=== PATIENT | male | born 1960 | race Caucasian/White ===

== ENCOUNTER 2017-08-08 06:02 | Observation (INO) | payer OTHER ==
[~2017-08-08 06:02] MED LIST: Buffered Lidocaine 0.9% SYRIN* 5 ML/SYR SYRINGE INTRADERM ONE
[2017-08-08] MEDS ORDERED: ceFAZolin 2 GM (*##) 2 GM/100 ML BAG USE CEFA2SOL IVPB ONE (06:11)
[2017-08-08] MEDS ORDERED: Lidocaine 1% MPF wEPI 200,000* 30 ML SDV ONE (07:15)
[2017-08-08] MEDS ORDERED: Bacitracin IV* 50,000 UNITS INJ ONE (07:15)
[2017-08-08] MEDS ORDERED: Thrombin 5,000 UNITS* 1 APPLIC KIT - topical use - TOPICAL ONE (07:15)
[2017-08-08] MEDS ORDERED: Propofol* 10 MG/ML 20 ML BTL IV PUSH ONE (07:33)
[2017-08-08] MEDS ORDERED: Ondansetron INJ* 2 MG/ML VIAL ONE (07:33)
[2017-08-08] MEDS ORDERED: Atracurium* 10 MG/ML 10 ML VIAL ONE (07:33)
[2017-08-08] MEDS ORDERED: Lidocaine 2% PF * 5 ML VIAL ONE (07:33)
[2017-08-08] MEDS ORDERED: fentaNYL* 50 MCG/ML 5 ML VIAL (250 MCG VIAL) ONE (07:33)
[2017-08-08] MEDS ORDERED: Dexamethasone IV* 4 MG/ML 1 ML (4 MG) ONE (07:33)
[2017-08-08] MEDS ORDERED: EPHEDrine (Pressors)* 50 MG/ML VIAL ONE (08:17)
[2017-08-08] MEDS ORDERED: HYDROmorphone INJ* 1 MG/ML CARPUJECT SYRINGE IV PRN (08:38)
[2017-08-08] MEDS ORDERED: Naloxone* 0.4 MG/ML 1 ML VIAL IV PRN (08:38)
[2017-08-08] MEDS ORDERED: oxyCODONE TAB* 5 MG TAB PO PRN (08:38)
[2017-08-08] MEDS ORDERED: fentaNYL* 50 MCG/ML 2 ML VIAL (100 MCG VIAL) IV PRN (08:38)
[2017-08-08] MEDS ORDERED: DiMENhydriNATE IV* 50 MG/ML VIAL IV PUSH PRN (08:38)
[2017-08-08] MEDS ORDERED: Acetaminophen TAB* 325 MG PO PRN (08:57)
[2017-08-08] MEDS ORDERED: Ondansetron INJ* 2 MG/ML VIAL IV PRN (08:57)
[2017-08-08] MEDS ORDERED: Magnesium Hydroxide LIQ* 30 ML UDC PO PRN (08:57)
[2017-08-08] MEDS ORDERED: Ketorolac INJ* 30 MG/ML 1 ML VIAL ONE (09:31)
--- NOTE | 2017-08-08 11:00 | RAD ---
Indication: L2-L3 discectomy. Comparison: No relevant prior exams available on the [facility] PACS for comparison. Technique: Prone crosstable lateral lumbar sacral spine 0815 hours Report: Tissue retractor and surgical instrument at the L2-L3 level. IMPRESSION: Intraoperative control film.
[2017-08-08] MEDS: PTO:Fenofibrate(NF) 145 MG TAB PO SCH ×3 (19:33→19:51)
[2017-08-08] MEDS: HYDROcodone/ACETAMIN 5-325 MG* 1 TAB PO PRN (20:00)
[2017-08-09] MEDS: HYDROcodone/ACETAMIN 5-325 MG* 1 TAB PO PRN ×3 (00:01→09:30)
[2017-08-09] MEDS ORDERED: Levothyroxine TAB* 150 MCG TAB PO SCH (06:00)
--- NOTE | 2017-08-09 07:45 | PN ---
Progress Note - Progress Note Date of Service: 08/09/17 SOAP: Subjective: []POD # 1 C/o incisional pain Pre op severe leg pain relieved Dressing intact Objective: []Neuro intact Pre op leg pain relieved Assessment: []Satis post op course Plan: []D/C today D/C Instructions given
[2017-08-09 07:49] VITALS: BP 98/62
--- NOTE | 2017-08-10 06:50 | OP ---
DATE OF OPERATION: 08/08/17 - ROOM #[id number] DATE OF : 60 PRIMARY SURGEON: Jerel Cartagena MD. ASSEMBLY INSTRUCTIONS WRITER: LEO Conway. ANESTHESIA: General. PRE-OP DIAGNOSIS: Herniated nucleus pulposus, L2-3 on the right. POST-OP DIAGNOSIS: Herniated nucleus pulposus, L2-3 on the right. OPERATIVE PROCEDURE: Lumbar diskectomy L2-3 on the right with microdissection. DESCRIPTION OF PROCEDURE: After satisfactory general anesthesia was obtained, the patient was placed on the operating table in a prone position with the chest supported on the Daquan frame and the back slightly flexed. The lumbar region was then clipped, prepped, and draped in a sterile manner for a lumbar laminectomy and a skin incision outlined from L2 to L3. This incision was infiltrated with 1% Xylocaine with epinephrine, after which it was turned sharply to the level of the lumbar fascia. The fascia was divided along the spinous processes of L2 and L3 and the paraspinal musculature stripped away from these posterior elements using the periosteal elevator and monopolar cautery. An intraoperative x-ray was obtained verifying proper interspace localization, after which a partial hemilaminectomy was carried out at this level by removing the inferior aspect of the L2 lamina and medial aspect of the facet complex with a combination of [place]ance drill and Kerrison rongeurs. The decompression was carried superiorly until the attachment of the ligamentum flavum was taken down. Ligamentum was then removed with the Kerrison as well. A generous foraminotomy was carried out over the L3 nerve root. At this point of procedure, the operating microscope was brought into the field and the remainder of the procedure was done under microscopic visualization. Projecting into the axillary region of the exposed L3 nerve root, there was noted to be freely extruded disk material covered by a thin rim of posterior longitudinal ligament. Multiple fragments of disk material were removed from this region, which basically was projecting over the L3 vertebral body. The disk space itself was palpated and was not felt to have a soft disk component and was not disturbed. At the conclusion of the decompression, the L3 nerve root was noted to be free in its course. After assuring adequate hemostasis, the wound was thoroughly irrigated. After which, a piece of Gelfoam was placed over the laminectomy defect. The fascia was then reapproximated with 0 Vicryl suture. The subcutaneous tissue was closed with 3-0 Vicryl suture and skin closed with skin clips. The estimated blood loss was less than 50 cc and the final sponge, padding, and needle counts were correct. The patient was taken to the recovery room, extubated, and in stable condition. [id number]/[facility] #: [id number] MTDD
--- NOTE | 2017-08-22 15:00 | DS ---
DISCHARGE SUMMARY: DATE OF ADMISSION: 08/08/17 DATE OF DISCHARGE: 08/09/17 ATTENDING PHYSICIAN: Dr. Cartagena.* (DICTATED BY LEO JULIO) DISCHARGE DIAGNOSES: 1. Herniated nucleus pulposus, L2-3 to the right. 2. Lumbar stenosis, L3-4 and L4-5. 3. Obstructive sleep apnea. 4. Hypothyroidism. SPECIAL PROCEDURES: Lumbar diskectomy L2-3 on the right. HOSPITAL COURSE: This 57-year-old male was seen in office with right-sided lumbar radiculopathy consistent with MRI findings of herniated disk at L2-3 to the right. He had a history of chronic low back pain which has recently worsened to include radiculopathy. He was unable to manage symptoms with conservative treatments including injections and medications and was therefore considered for surgical intervention. On the day of admission, he was taken to surgery where under general anesthesia, a lumbar diskectomy at L2-3 on the right operation was carried out. Postoperatively, the right lower extremity pain was improved. He was ambulating independently and he was eating, drinking , and voiding without difficulty. Pain was well controlled with oral pain medications. On the first postoperative day, he was discharged home to the care of his family. Discharge instructions including wound care and activity level were discussed with the patient. FOLLOWUP: He will be seen in the office in approximately 2 weeks for followup and staple removal. DISCHARGE MEDICATIONS: None. LEO JULIO [id number]/[facility] #: [id number] MAURO
== END 2017-08-09 10:50 | disposition home or self-care (01) ==
LOC: OR 06:02 → SSU 11:42
PROVIDERS: ADMIT Neurological Surgery; ATTEND Neurological Surgery
PROC: 01NB0ZZ Release Lumbar Nerve, Open Approach (ICD-10-PCS; 2017-08-08)
PROC: 0SB20ZZ Excision of Lumbar Vertebral Disc, Open Approach (ICD-10-PCS; principal; 2017-08-08 07:30)
DX: M51.16 Intervertebral disc disorders with radiculopathy, lumbar region (principal); M48.061 Spinal stenosis, lumbar region without neurogenic claudication; M51.26 Other intervertebral disc displacement, lumbar region; G47.33 Obstructive sleep apnea (adult) (pediatric); E03.9 Hypothyroidism, unspecified; Z79.899 Other long term (current) drug therapy
CPT/HCPCS: 72100; A9270-GY; G0378; J1100; J1885; J2001; J2405; J2704; J3010